=== PATIENT | male | born 1965 | race Caucasian/White ===

== ENCOUNTER 2019-02-13 18:32 | Emergency (ER) | payer OTHER ==
[~2019-02-13] VITALS: Ht 182.9 cm; Wt 93.4 kg
[~2019-02-13 18:32] MED LIST: BACTRIM DS TAB1 EACH PO; BLOOD PRESSURE1 EA10; KEFLEX500 M1 PO; [UNRECOGNIZED DRUG - REMARK]
[2019-02-13] MEDS ORDERED: BACTRIM DS TAB1 EACH PO (19:06)
[2019-02-13] MEDS ORDERED: KEFLEX500 M1 PO (19:06)
[2019-02-13 19:15] VITALS: BP 150/79
== END 2019-02-13 19:32 | disposition home or self-care (01) ==
LOC: M.ERS 18:32
DX: L03.115 Cellulitis of right lower limb (principal); I10 Essential (primary) hypertension; E78.00 Pure hypercholesterolemia, unspecified; Z88.1 Allergy status to other antibiotic agents

== ENCOUNTER → 2020-08-10 | Outpatient (CLI) | payer OTHER | LOC: M.LAB 11:18 | PROVIDERS: ATTEND Orthopaedic Surgery | DX: Z01.812 Encounter for preprocedural laboratory examination (principal); Z20.828 Contact with and (suspected) exposure to other viral communicable diseases ==